=== PATIENT | male | born 1950 ===

== ENCOUNTER 2018-12-01 11:52 | Outpatient (REF) | payer MEDICARE, SELFPAY ==
[2018-12-04 19:35] LABS: Hemoglobin A1C 5.7 % (4.5-6.2)
[2018-12-04 19:36] LABS: BUN 16 mg/dL (7-18); CREATININE 0.96 mg/dL (0.70-1.30); Calcium 8.9 mg/dL (8.5-10.1); Glucose 96 mg/dL (70-100)
[2018-12-04 19:37] LABS: Albumin 3.6 g/dL (3.4-5.0); Bilirubin, Total 0.6 mg/dL (0.2-1.0); Cholesterol 163 mg/dL (50-200); HDL Cholesterol 31 mg/dL (40-60); LDL CHOLESTEROL 106 mg/dL (<100); Total Protein 6.9 g/dL (6.4-8.2); Triglyceride 104 mg/dL (30-150)
[2018-12-04 19:38] LABS: AST 25 U/L (15-37); Alkaline Phosphatase 64 U/L (46-116); Chloride 105 mmol/L (98-107); Potassium 4.1 mmol/L (3.5-5.1); Sodium 142 mmol/L (136-145)
[2018-12-04 19:39] LABS: ALT 33 U/L (12-78)
== END 2018-12-01 12:12 ==
LOC: NCHCN 11:52
PROVIDERS: PCP Family Medicine; Visit Provider Family Medicine
DX: R69 Illness, unspecified
CPT/HCPCS: 80053; 80061; 83721; 83036

== ENCOUNTER 2020-12-11 20:01 | Outpatient (REF) | payer MEDICARE, SELFPAY ==
[2020-12-11 20:48] LABS: Hemoglobin A1C 5.6 % (<5.7)
[2020-12-11 20:54] LABS: ALT 41 U/L (16-63); AST 38 U/L (15-37); Alkaline Phosphatase 62 U/L (46-116); Anion Gap 9.2 mmol/L (3-11); BUN 12 mg/dL (7-18); Bilirubin, Total 0.7 mg/dL (0.2-1.0); CO2 27.8 mmol/L (21.0-32.0); CREATININE 0.9 mg/dL (0.70-1.30); Calcium 9.1 mg/dL (8.5-10.1); Calculated LDL 126 mg/dL (<100); Chloride 104 mmol/L (98-107); Cholesterol 178 mg/dL (<200); Glucose 86 mg/dL (74-106); HDL Cholesterol 36 mg/dL (40-60); Sodium 141 mmol/L (136-145); Total Protein 7.3 g/dL (6.4-8.2); Triglyceride 84 mg/dL (<150)
== END 2020-12-11 20:02 | disposition home or self-care (01) ==
LOC: NCHCN 20:01
PROVIDERS: PCP Family Medicine; Visit Provider Family Medicine
DX: R73.03 Prediabetes (principal); E88.81 Metabolic syndrome and other insulin resistance; E66.9 Obesity, unspecified
CPT/HCPCS: 80053; 80061; 83036

== ENCOUNTER 2022-03-26 15:45 | Outpatient (REF) | payer MEDICARE, SELFPAY ==
[2022-03-26 21:01] LABS: ALT 31 U/L (16-63); AST 29 U/L (15-37); Alkaline Phosphatase 87 U/L (46-116); Anion Gap 9.9 mmol/L (3-11); BUN 19 mg/dL (7-18); Bilirubin, Total 0.6 mg/dL (0.2-1.0); CO2 26.1 mmol/L (21.0-32.0); CREATININE 0.9 mg/dL (0.70-1.30); Calcium 9.2 mg/dL (8.5-10.1); Chloride 106 mmol/L (98-107); Glucose 88 mg/dL (74-106); Potassium 4.1 mmol/L (3.5-5.1); Sodium 142 mmol/L (136-145); Total Protein 7.4 g/dL (6.4-8.2)
== END 2022-03-26 15:46 | disposition home or self-care (01) ==
LOC: NCHCN 15:45
PROVIDERS: PCP Family Medicine; Visit Provider Family Medicine
DX: R79.89 Other specified abnormal findings of blood chemistry (principal); E88.81 Metabolic syndrome and other insulin resistance
CPT/HCPCS: 80053

== ENCOUNTER 2023-07-15 16:16 | Outpatient (REF) | payer MEDICARE, OTHER, SELFPAY ==
--- OUTSIDE RECORDS SUMMARY | 2023-07-15 16:21 | XMS_ITS | CCD ---
Author Name Unknown Address [address] [place] [address] [phone] Organization Unknown Address [address] [place] [address] [phone] Care Team Providers Care Lactation Consultant Name Role Phone AMERICA RODRÍGUEZ, BARBARA Siu Attending Physician [phone] BARBARA CROSS MD Er Physician [phone] Vital Signs Unknown or Not Available. Allergies Unknown or Not Available. Procedures Unknown or Not Available. History of Immunizations Unknown or Not Available. Problems Unknown or Not Available. Results Unknown or Not Available. Active Medications Unknown or Not Available. Medications Administered During Visit Unknown or Not Available. Encounters Encounter Diagnosis Diagnosis Code Start Date Laceration without foreign b turner of right little finger without damage to nail, initial encounter [id number] 03/15/2021 Social History Smoking Status Code Start Date End Date Never smoker [id number] Patient Decision Aids Unknown or Not Available. Discharge Instructions You were admitted to [facility] on 03/15/2021 09:31 with a principal diagnosis of Laceration without foreign body of right little finger without damage to nail, initial encounter You were discharged from [facility] on 03/15/2021 10:39 Should you have any questions prior to discharge, please contact a member of your healthcare team. If you have left the hospital and have any questions, please contact your primary care physician. Chief Complaint and Reason For Visit Chief Complaint Date of Onset FINGER LACERATION Function Status Unknown or Not Available. Plan of Care Unknown or Not Available. Referral/Transition of Care Unknown or Not Available.
--- OUTSIDE RECORDS SUMMARY | 2023-07-15 16:21 | XMS_ITS | CCD ---
Author Name Unknown Address [address] [place] [address] [phone] Organization Unknown Address [address] [place] [address] [phone] Care Team Providers Care Hand Spring Repairer Name Role Phone KRIS ALICIA Attending Physician [phone] Vital Signs Unknown or Not Available. Allergies Unknown or Not Available. Procedures Unknown or Not Available. History of Immunizations Unknown or Not Available. Problems Unknown or Not Available. Results Unknown or Not Available. Active Medications Unknown or Not Available. Medications Administered During Visit Unknown or Not Available. Encounters Encounter Diagnosis Diagnosis Code Start Date Personal history of nicotine dependence [id number] 05/14/2022 Social History Smoking Status Code Start Date End Date Never smoker [id number] Patient Decision Aids Unknown or Not Available. Discharge Instructions You were admitted to [facility] on 05/14/2022 07:53 with a principal diagnosis of Personal history of nicotine dependence You were discharged from [facility] on 05/14/2022 07:53 Should you have any questions prior to discharge, please contact a member of your healthcare team. If you have left the hospital and have any questions, please contact your primary care physician. Chief Complaint and Reason For Visit Chief Complaint Date of Onset FORMER SMOKER Function Status Unknown or Not Available. Plan of Care Unknown or Not Available. Referral/Transition of Care Unknown or Not Available.
--- OUTSIDE RECORDS SUMMARY | 2023-07-15 16:22 | XMS_ITS | CCD ---
Author Name Unknown Address [address] [place] [address] [phone] Organization Unknown Address [address] [place] [address] [phone] Care Team Providers Care Application Programmer Analyst Name Role Phone NINOSKA MILLER Attending Physician [phone] Vital Signs Unknown or Not Available. Allergies Unknown or Not Available. Procedures Unknown or Not Available. History of Immunizations Unknown or Not Available. Problems Unknown or Not Available. Results [facility] COVID RHEONIX* - Damien ect Date/Time: 09/17/2021 09:54 Test Name Code Test Result Test Units Test Ref Rang e SOURCE= Anterior nasal N/A Tier- EXPOSURE N/A SARS COV2 RNA: 83204-6 NEGATIVE N/A REFERENCE RANGE: NEGAT Active Medications Unknown or Not Available. Medications Administered During Visit Unknown or Not Available. Encounters Encounter Diagnosis Diagnosis Code Start Date Exposure to SARS-CoV-2 [id number] Social History Smoking Status Code Start Date End Date Never smoker [id number] Patient Decision Aids Unknown or Not Available. Discharge Instructions You were admitted to [facility] on 09/17/2021 19:49 with a principal diagnosis of Contact with and (suspected) exposure to COVID-19 You had the following tests done:[facility] COVID RHEONIX* You were discharged from [facility] on 09/17/2021 19:49 Should you have any questions prior to discharge, please contact a member of your healthcare team. If you have left the hospital and have any questions, please contact your primary care physician. Chief Complaint and Reason For Visit Unknown or Not Available. Function Status Unknown or Not Available. Plan of Care Unknown or Not Available. Referral/Transition of Care Unknown or Not Available.
[2023-07-15 21:20] LABS: HCT 40.4 % (40.0-50.0); HGB 13.6 g/dL (13.5-17.5); MCH 29.6 pg (27.0-33.0); MCHC 33.7 % (32.0-36.0); MCV 88 fL (80-95); MPV 10.6 fL (8.0-11.0); Platelet Count 236 10^3/uL (130-400); RDW 12.9 % (11.8-14.1); RDW-SD 41.1 fL; WBC 6.68 10^3/uL (4.4-10.8)
[2023-07-15 21:41] LABS: Hemoglobin A1C 5.4 % (<5.7)
[2023-07-15 22:01] LABS: ALT 30 U/L (16-63); AST 33 U/L (15-37); Albumin 3.9 g/dL (3.4-5.0); Alkaline Phosphatase 67 U/L (46-116); Anion Gap 6.1 mmol/L (3-11); BUN 13 mg/dL (7-18); Bilirubin, Total 0.6 mg/dL (0.2-1.0); CO2 28.9 mmol/L (21.0-32.0); Calcium 9.5 mg/dL (8.5-10.1); Calculated LDL 128 mg/dL (<100); Chloride 105 mmol/L (98-107); Cholesterol 184 mg/dL (<200); Estimated GFR 80.97 (mL/min/1.73m2); Glucose 91 mg/dL (74-106); HDL Cholesterol 45 mg/dL (40-60); Magnesium 2.2 mg/dL (1.8-2.4); Potassium 4.3 mmol/L (3.5-5.1); Sodium 140 mmol/L (136-145); TSH (W/Ref FT4) 2.13 uIU/mL (0.36-3.74); Total Protein 7.5 g/dL (6.4-8.2); Triglyceride 55 mg/dL (<150); Vitamin B12 265 pg/mL (193-986)
== END 2023-07-15 16:17 | disposition home or self-care (01) ==
LOC: NCHCN 16:16
PROVIDERS: PCP Family Medicine; Visit Provider Family Medicine
DX: R73.03 Prediabetes (principal); E78.5 Hyperlipidemia, unspecified; K21.9 Gastro-esophageal reflux disease without esophagitis; R20.2 Paresthesia of skin; R25.2 Cramp and spasm; M79.18 Myalgia, other site
CPT/HCPCS: 80053; 80061; 85027; 82607; 83036; 83735; 84443

== ENCOUNTER 2024-11-16 13:07 | Outpatient (REF) | payer MEDICARE, OTHER, SELFPAY ==
[2024-11-16 21:12] LABS: Abs Immature Grans 0.01 10^3/uL (0.0-0.06); Absolute Basophil Count 0.04 10^3/uL (0.0-0.2); Absolute Eosinophil Count 0.03 10^3/uL (0.0-0.7); Absolute Lymphocyte Count 1.26 10^3/uL (1.2-3.4); Absolute Monocyte Count 0.43 10^3/uL (0.1-0.8); Absolute Neutrophil Count 3.74 10^3/uL (1.2-6.7); Basophils % 0.7 %; Eosinophils % 0.5 %; HGB 14.9 g/dL (13.5-17.5); Immature Grans % 0.2 %; Lymphocytes % 22.9 %; MCH 29.4 pg (27.0-33.0); MCHC 33.1 % (32.0-36.0); MCV 89 fL (80-95); MPV 10.8 fL (8.0-11.0); Monocytes % 7.8 %; Neutrophils % 67.9 %; Platelet Count 221 10^3/uL (130-400); RBC 5.06 10^6/uL (4.36-5.78); RDW 12.5 % (11.8-14.1); RDW-SD 40.9 fL; WBC 5.51 10^3/uL (4.4-10.8)
[2024-11-16 21:27] LABS: Hemoglobin A1C 5.6 % (<5.7)
[2024-11-16 21:56] LABS: ALT 34 U/L (16-63); AST 31 U/L (15-37); Alkaline Phosphatase 67 U/L (46-116); Anion Gap 5.6 mmol/L (3-11); BUN 16 mg/dL (7-18); Bilirubin, Total 0.76 mg/dL (0.2-1.0); CO2 31.4 mmol/L (21.0-32.0); CREATININE 1.1 mg/dL (0.70-1.30); Calcium 9.6 mg/dL (8.5-10.1); Calculated LDL 130 mg/dL (<100); Chloride 106 mmol/L (98-107); Cholesterol 201 mg/dL (<200); Estimated GFR 71.32 (mL/min/1.73m2); Glucose 89 mg/dL (74-106); HDL Cholesterol 46 mg/dL (40-60); Potassium 4.8 mmol/L (3.5-5.1); Sodium 143 mmol/L (136-145); TSH 1.41 uIU/mL (0.36-3.74); Total Protein 7.6 g/dL (6.4-8.2); Triglyceride 129 mg/dL (<150); Vitamin B12 300 pg/mL (193-986)
[2024-11-16 22:25] LABS: FREE T4 0.93 ng/dL (0.76-1.46)
== END 2024-11-16 13:08 | disposition home or self-care (01) ==
LOC: NCHCN 13:07
PROVIDERS: PCP Family Medicine; Visit Provider Family Medicine
DX: E78.5 Hyperlipidemia, unspecified (principal); G31.84 Mild cognitive impairment of uncertain or unknown etiology; R73.03 Prediabetes
CPT/HCPCS: 80053; 80061; 82607; 83036; 84439; 84443; 85025